=== PATIENT | male | born 1990 | race African-American/Black ===

== ENCOUNTER 2017-04-04 02:33 | Emergency (ER) | payer SELFPAY ==
[~2017-04-04] VITALS: Ht 193 cm; Wt 82.8 kg
[~2017-04-04 02:33] MED LIST: AMOXICILLIN500 MG OR; AMOXICILLIN500 MG PO; CIPRO500 MG OR; DARVOCET-N 100100 MG OR; NAPROSYN500 MG PO; NO CURRENT MEDS; NO HOME MEDS; TAM75CAP OR; ULTRAM50 MG PO
[2017-04-04] MEDS ORDERED: FIORICET PO (03:05)
[2017-04-04 03:50] VITALS: BP 138/85
== END 2017-04-04 03:51 | disposition left against medical advice (07) | DRG 103 ==
LOC: ED 02:33
DX: R51 Headache (principal); J45.909 Unspecified asthma, uncomplicated; Z91.19 Patient's noncompliance with other medical treatment and regimen

== ENCOUNTER 2018-08-01 15:54 | Emergency (ER) | payer OTHER ==
[~2018-08-01] VITALS: Ht 193 cm; Wt 88.6 kg
[~2018-08-01 15:54] MED LIST changes: +FIORICET PO
[2018-08-01 17:32] VITALS: BP 124/72
== END 2018-08-01 17:40 | disposition home or self-care (01) | DRG 103 ==
LOC: ED 15:54
DX: G43.909 Migraine, unspecified, not intractable, without status migrainosus (principal); F17.200 Nicotine dependence, unspecified, uncomplicated

== ENCOUNTER 2018-12-14 05:00 | Emergency (ER) | payer OTHER ==
[~2018-12-14] VITALS: Ht 193 cm; Wt 91.0 kg
[2018-12-14] MEDS ORDERED: AMOXICILLIN500 MG PO (07:40)
[2018-12-14 07:45] VITALS: BP 124/77
== END 2018-12-14 07:56 | disposition home or self-care (01) | DRG 153 ==
LOC: ED 05:00
DX: J02.9 Acute pharyngitis, unspecified (principal); F17.210 Nicotine dependence, cigarettes, uncomplicated

== ENCOUNTER 2019-05-01 | Emergency (ER) | payer OTHER ==
[2019-05-01 11:42] LABS: HEMATOCRIT 40.5 % (39.0-50.0); HEMOGLOBIN 13.5 g/dl (14.0-18.0); IMMATURE GRANULOCYTES 0.2 % (0.0-5.0); MEAN CELL VOLUME 89.6 fL CALC (80.0-100.0); MEAN CORPUSCULAR HGB 29.9 pG CALC (26.0-32.0); MEAN CORPUSCULAR HGB CONC 33.3 g/L CALC (32.0-36.0); NEUT# 4.89 thou/uL (1.82-7.42); RED BLOOD COUNT 4.52 mill/uL (4.70-6.10); RED CELL DISTRI WIDTH 11.8 % (11.5-15.5)
[2019-05-01] MEDS ORDERED: AMOXICILLIN500 M2 PO (12:11)
== END 2019-05-01 12:35 | disposition home or self-care (01) | DRG 153 ==
PROVIDERS: Family Medicine
DX: J02.9 Acute pharyngitis, unspecified (principal)

== ENCOUNTER 2022-01-08 19:32 | Emergency (ER) | payer OTHER ==
[~2022-01-08] VITALS: Ht 193 cm; Wt 77.2 kg
[~2022-01-08 19:32] MED LIST changes: +AMOXICILLIN500 M2 PO
[2022-01-08 20:04] VITALS: BP 134/90
[2022-01-08 20:15] VITALS: BP 125/73
[2022-01-08] MEDS ORDERED: AMOXICILLIN500 MG PO (20:16)
[2022-01-08] MEDS ORDERED: ULTRAM50 MG PO (20:16)
[2022-01-08 20:30] VITALS: BP 134/75
[2022-01-08 21:02] VITALS: BP 134/75
== END 2022-01-08 21:02 | disposition home or self-care (01) | DRG 159 ==
LOC: ED 19:32
DX: K04.7 Periapical abscess without sinus (principal); J45.909 Unspecified asthma, uncomplicated

== ENCOUNTER 2023-09-17 17:35 | Emergency (ER) | payer OTHER ==
[~2023-09-17] VITALS: Ht 195.6 cm; Wt 79.4 kg
[2023-09-17 18:19] VITALS: BP 132/82
[2023-09-17] MEDS ORDERED: KETOROLAC TROMETHAMINE 30 MG/ML SDV IM ONE (18:25)
[2023-09-17] MEDS ORDERED: ACETAMINOPHEN 500 MG TAB PO ONE (18:25)
[2023-09-17] MEDS ORDERED: TRAMADOL HYDROC50 M1 PO (18:29)
[2023-09-17] MEDS ORDERED: CLINDAMYCIN HY300 MG PO (18:29)
[2023-09-17 18:30] VITALS: BP 135/82
[2023-09-17] MEDS ORDERED: NAPROXEN500 MG PO (18:31)
[2023-09-17 18:45] VITALS: BP 131/77
[2023-09-17 18:46] VITALS: BP 131/77
== END 2023-09-17 18:52 | disposition home or self-care (01) | DRG 159 ==
LOC: ED 17:35
DX: K04.7 Periapical abscess without sinus (principal); J45.909 Unspecified asthma, uncomplicated